=== PATIENT | female | born 2000 | race Caucasian/White ===

== ENCOUNTER 2019-05-06 20:45 | Inpatient (IN) | payer BC, OTHER ==
[~2019-05-06] VITALS: Ht 149.9 cm; Wt 6.8 kg
[2019-05-06] MEDS ORDERED: LACT. RINGERS/OXYTOCIN 20UNITS 1,000 ML IV SCH (21:11)
[2019-05-06] MEDS ORDERED: LACTATED RINGER'S 1,000 ML IV SCH (21:11)
[2019-05-06] MEDS ORDERED: LIDOCAINE 2%HCL (LOCAL ANESTH.) INJ 20ML MDV IJ ONE (21:15)
[2019-05-06] MEDS ORDERED: PHISODERM TOP SOLN 240ML BTL TOP PRN (21:15)
[2019-05-06] MEDS ORDERED: WITCH HAZEL-GLYCERIN PAD TOP PRN (21:15)
[2019-05-06] MEDS ORDERED: METHYLERGONOVINE MALEATE 0.2 MG/ML AMP IM PRN (21:15)
[2019-05-06] MEDS ORDERED: DERMOPLAST 60ML BOTTLE TOP PRN (21:15)
[2019-05-06] MEDS ORDERED: BUTORPHANOL TARTRATE 2 MG/1 ML VIAL IV ONE (21:30)
[2019-05-06 22:07] LABS: Urine Bacteria NONE SEEN /hpf (None Seen); Urine Blood 1+ /uL (Negative); Urine Hyaline Cast FEW /lpf (0 - 2); Urine Mucus FEW (None Seen); Urine Specific Gravity 1.022 (1.001-1.035); Urine WBC 3 /hpf (0 - 5)
[2019-05-06 22:08] LABS: Basophils # (auto) 0 uL; Basophils % (auto) 0.1 % (0.0-2.0); Eosinophils # (auto) 0.1 uL; Eosinophils % (auto) 0.3 % (0.0-7.0); Hematocrit 34.8 % (36.0-46.0); Hemoglobin 11.6 g/dL (12.2-16.2); Lymphocytes # (auto) 1.6 uL; Mean Corpuscular Hemoglobin 29.1 pg (28.0-32.0); Mean Corpuscular Hgb Conc. 33.3 g/dL (32.0-36.0); Mean Corpuscular Volume 87.6 fL (80.0-100.0); Monocytes # (auto) 1.3 uL; Monocytes % (auto) 6.5 % (0.0-12.0); Neutrophils % (auto) 85.1 % (37.0-80.0); Nucleated Red Blood Cells % 0.1 %; Platelet Count (auto) 180 10^3/uL (140-450); Red Blood Cells 3.98 10^6/uL (4.0-5.20); Red Cell Distribution Width 15.2 % (11.8-14.3)
[2019-05-06 22:23] LABS: INR 0.99 (0.9-1.15); Partial Thromboplastin Time 21.9 sec (23.64-32.05)
[2019-05-06 22:27] LABS: Alanine Aminotransferase 15 U/L (13-56); Albumin 2.7 g/dL (3.4-5.0); Anion Gap 14 (5-15); Aspartate Aminotransferase 22 U/L (15-37); BUN/Creatinine Ratio 14.3; Blood Urea Nitrogen 9 mg/dL (7-18); Calcium 8.7 mg/dL (8.5-10.1); Carbon Dioxide 18 mmol/L (21-32); Chloride 105 mmol/L (98-107); GFR African American 157 mL/min; GFR Non-African American 129 mL/min; Glucose 76 mg/dL (74-106); Potassium 4.1 mmol/L (3.5-5.1); Sodium 137 mmol/L (136-145)
[2019-05-06 22:28] LABS: Alcohol, Urine < 3.0 mg/dL (0-5); Amphetamine Screen, Urine NEGATIVE (NEGATIVE); Barbiturate Scree,Urine NEGATIVE (NEGATIVE); Benzodiazephine Screen, Urine NEGATIVE (NEGATIVE); Cannabinoid Screen, Urine NEGATIVE (NEGATIVE); Cocaine Screen, Urine NEGATIVE (NEGATIVE); Opiate Scree,Urine NEGATIVE (NEGATIVE); Phencyclidine Screen, Urine NEGATIVE (NEGATIVE)
[2019-05-06 22:29] LABS: Alkaline Phosphatase 154 U/L (45-117); Bilirubin, Total 0.2 mg/dL (0.2-1.0); Total Protein 6.8 g/dL (6.4-8.2)
[2019-05-06] MEDS ORDERED: ACETAMINOPHEN 325 MG TAB PO PRN (22:30)
[2019-05-06] MEDS: IBUPROFEN 600 MG TAB PO PRN (23:23)
--- NOTE | 2019-05-06 23:45 | NUR ---
Ambulation: Patient OOB with standby assistance by RN. Patient ambulated to bathroom with steady gait. Patient able to void without difficulty. Pericare teaching provided with returned demonstration by patient. Clean gown provided and bed linen changed. Patient ambulated back to bed with steady gait and no distress noted.
[2019-05-07] MEDS ORDERED: PREN-96 PO (00:24)
[2019-05-07 02:53] VITALS: BP 115/66
[2019-05-07 07:30] VITALS: BP 113/61
[2019-05-07] MEDS ORDERED: OXYTOCIN 10UNIT/ML 1ML VIAL IV ONE (08:20)
[2019-05-07 10:30] VITALS: BP 113/73
[2019-05-07] MEDS: IBUPROFEN 600 MG TAB PO PRN (11:42)
[2019-05-07 15:00] VITALS: BP 108/59
--- NOTE | 2019-05-07 16:35 | NUR ---
Saline lock removed via clean technique by RN at bedside. Catheter intact upon removal and no signs of inflammation or infiltration noted at time of removal. Pt. tolerated procedure well.
--- NOTE | 2019-05-07 18:20 | NUR ---
Report given to Tommy Madison RN on stable pt. Relinquished care. Addendum: 05/07/19 at 1906 by Emely Gomez RN Amended: Links added.
[2019-05-07 22:46] VITALS: BP 113/60
[2019-05-08 03:00] VITALS: BP 116/60
[2019-05-08 05:07] LABS: Rubella Antibodies, IgG 1.54 index (Immune >0.99)
[2019-05-08 07:09] LABS: RPR Non Reactive (Non Reactive)
[2019-05-08 07:21] VITALS: BP 116/66
[2019-05-08] MEDS: IBUPROFEN 600 MG TAB PO PRN (10:08)
[2019-05-08 11:00] VITALS: BP 109/64
--- NOTE | 2019-05-08 14:00 | NUR ---
Discharge: Discharge instructions given as ordered. Pt encouraged to follow up with [facility] as instructed. All questions and concerns addressed. Patient verbalized understanding. Medication reconciliation completed and copy given to patient. All required/requested vaccines given and copies of vaccinations given to patient. Patient encouraged to prepare to depart unit.
--- NOTE | 2019-05-08 14:00 | NUR ---
Discharge: Discharge instructions given to mother of baby as ordered. Copies of and hearing screening, along with vaccination record given to mother. Mother encouraged to follow up with [facility] Ironer of choice and to give envelope with infants information to card grader at 1st office visit. All questions and concerns addressed. Mother of baby verbalized understanding and agreed to comply. Mother of baby encouraged to prepare for departure and notify RN ready to leave room for ID band removal/verification and car seat check.
--- NOTE | 2019-05-08 14:20 | NUR ---
Discharge: Patient taken to vehicle ambulatory with all personal belongings, accompanied by staff and family member. No distress noted at time of departure, no adverse changes in status since initial assessment.
== END 2019-05-08 14:20 | disposition home or self-care (01) | DRG 805 ==
LOC: LDRP 20:45
PROVIDERS: ADMIT Specialist; ATTEND Specialist
PROC: 10E0XZZ Delivery of Products of Conception, External Approach (ICD-10-PCS; principal; 2019-05-06)
DX: O32.8XX0 Maternal care for other malpresentation of fetus, not applicable or unspecified (principal); O60.14X0 Preterm labor third trimester with preterm delivery third trimester, not applicable or unspecified; Z37.0 Single live birth; Z3A.36 36 weeks gestation of pregnancy
CPT/HCPCS: 36415; 59612; 80053; 80307; 81001; 81002; 84112; 85025; 85610; 85730; 86592; 86703; 86762; 86850; 86900; 86901; 87340; 94760; 96361; 96374; G0378